=== PATIENT | male | born 1960 | race Caucasian/White ===

== ENCOUNTER 2022-01-27 15:32 | Emergency (ER) | payer OTHER ==
[~2022-01-27] VITALS: Ht 175.3 cm; Wt 92.5 kg
--- NOTE | 2022-01-27 15:47 | NUR ---
[id number], laying in curb c/o weakness. hx of etoh. bg 154. 1/2 ns given pt. to ER bed 12, hooked to monitor, changed to hosp gown warm blanket provided, awaiting MD foreman
--- NOTE | 2022-01-27 15:52 | NUR ---
DR TEAGUE AT BEDSIDE
[2022-01-27 16:30] LABS: BASOPHILS % (AUTO) 0.1 % (0.0-2.0); EOSINOPHILS % (AUTO) 0.7 % (0.0-6.0); HEMATOCRIT 31 % (39-51); HEMOGLOBIN 10.5 g/dL (13.5-17.5); LYMPHOCYTES # (AUTO) 1.8 K/uL (0.8-4.8); LYMPHOCYTES % (AUTO) 15.6 % (20.0-44.0); MEAN CORPUSCULAR HGB CONC 33 g/dl (31.0-36.0); MEAN CORPUSCULAR VOLUME 94 fL (80-96); MONOCYTES # (AUTO) 0.8 K/uL (0.1-1.30); MONOCYTES % (AUTO) 7.2 % (2.0-12.0); NEUTROPHILS # (AUTO) 8.7 K/uL (1.8-8.9); NEUTROPHILS % (AUTO) 76.4 % (43.0-81.0); PLATELET COUNT (AUTO) 163 K/uL (150-450); RED BLOOD CELL COUNT(AUTO) 3.33 MIL/uL (4.5-6.0); WHITE BLOOD COUNT (AUTO) 11.3 K/uL (4.3-11.0)
[2022-01-27] MEDS ORDERED: METH500T6 PO (16:34)
[2022-01-27] MEDS ORDERED: ALOG25TA2 PO (16:34)
[2022-01-27] MEDS ORDERED: LISI10TA29 PO (16:34)
[2022-01-27] MEDS ORDERED: GLIP10TA11 PO (16:34)
[2022-01-27] MEDS ORDERED: AMLO-212 PO (16:34)
[2022-01-27] MEDS ORDERED: METF-441 PO (16:34)
[2022-01-27 16:36] LABS: CALCIUM, SERUM 8.3 mg/dL (8.5-10.1); CARBON DIOXIDE 18 mmol/L (21-32); CHLORIDE 101 mmol/L (98-107); CREATININE 1.4 mg/dL (0.6-1.3); GLUCOSE 56 mg/dL (74-106); POTASSIUM 4.7 mmol/L (3.5-5.1); SODIUM SERUM 133 mmol/L (136-145); UREA NITROGEN, BLOOD 26 mg/dL (7-18)
[2022-01-27] MEDS ORDERED: FAMOTIDINE/PF INJ 20 MG/2 ML VIAL IV ONE ×2 (17:00→17:15)
[2022-01-27] MEDS ORDERED: IV NS 0.9% 1,000 ML IV ONE (17:00)
[2022-01-27] MEDS ORDERED: ONDANSETRON HCL/PF 4 MG/2 ML VIAL IV ONE (17:00)
[2022-01-27] MEDS ORDERED: ONDANSETRON HCL/PF 4 MG/2 ML VIAL ONE (17:15)
[2022-01-27] MEDS ORDERED: ALBUTEROL FS 2.5 MG/3 ML VIAL.NEB NEB ONE (22:30)
[2022-01-27] MEDS ORDERED: IPRATROPIUM NEB FS 0.5 MG/2.5 ML AMPUL.NEB NEB ONE (22:30)
[2022-01-27] MEDS ORDERED: predniSONE 20 MG TABLET PO ONE (22:30)
[2022-01-27] MEDS ORDERED: predniSONE 20 MG TABLET ONE (22:45)
--- NOTE | 2022-01-27 22:50 | NUR ---
RT Patient appeared to have slight increase in WOB. SPO2 92%. Nebulizer tx given and tolerated with no adverse reaction. Post SPO2 99%. RN notified.
--- NOTE | 2022-01-27 22:56 | NUR ---
BS 92
--- NOTE | 2022-01-27 23:14 | NUR ---
Patient discharged to home in stable condition. Written and verbal after care instructions given. Patient verbalizes understanding of instruction.
[2022-01-27 23:17] VITALS: BP 131/70
== END 2022-01-27 23:17 | disposition home or self-care (01) ==
LOC: ER 15:34
DX: F10.129 Alcohol abuse with intoxication, unspecified (principal); I10 Essential (primary) hypertension; E11.9 Type 2 diabetes mellitus without complications; Z79.899 Other long term (current) drug therapy; Y90.6 Blood alcohol level of 120-199 mg/100 ml
CPT/HCPCS: 99285; 96374; 96361; 96375; 93005; 71045; 85025; 80048; 36415; 84484; 82962; 94640; 80320; J3490; J7512; J2405; J7030; G0480